=== PATIENT | male | born 1965 | race Caucasian/White ===

== ENCOUNTER → 2018-10-08 13:44 | Outpatient (CLI) | payer OTHER, SELFPAY ==
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
== END ==
PROVIDERS: PCP Nurse Practitioner Family; Visit Provider Nurse Practitioner Family
DX: G89.11 Acute pain due to trauma (principal); M54.6 Pain in thoracic spine; M54.5 Low back pain
CPT/HCPCS: 72072; 72110

== ENCOUNTER 2018-11-06 07:30 | Outpatient (RCR) | payer OTHER, SELFPAY ==
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
== END 2018-12-08 17:23 | disposition home or self-care (01) ==
LOC: PT 07:30
PROVIDERS: Visit Provider Internal Medicine Adolescent Medicine
DX: G89.11 Acute pain due to trauma (principal); M79.10 Myalgia, unspecified site
CPT/HCPCS: 97010; 97014; 97033; 97110; 97140; 97163; G0283

== ENCOUNTER 2020-01-15 19:57 | Inpatient (IN) | payer MEDICARE, SELFPAY ==
[2020-01-15] VITALS (8 sets, daily range): BP systolic 80–106; BP diastolic 47–68; PULSE 78–89; RESP 14–18; TEMP 36.4–36.7; O2SAT 94–96; BMI 25.1
--- NOTE | 2020-01-15 20:05 | ECG_ITS ---
APPROVED REPORT Exam: Resting ECG HR:86 bpm ECG Measurements Heart Rate 86 AXES WY 186 P 67 QRSd 88 QRS 86 QT 376 T 67 QTc 449 <Conclusion> Normal sinus rhythm Normal ECG Electronically signed by : Rodrick Wallace, 01/17/2020 07:10:10
--- NOTE | 2020-01-15 20:23 | HMH.EDAMS ---
ED Disposition Clinical Impression: Acute delirium, NICHELLE (acute kidney injury) Disposition: Admitted as Observation Condition on Discharge: Fair Instructions: DI for Altered Mental Status Referrals: Provider,Referral, [Primary Care Provider] - - Critical Care Critical Care Time: No Attestation: On , the high probability of a clinically significant, sudden or life threatening deterioration of the following system(s) required my full and direct attention, intervention and personal management. The time I documented below is in addition to time spent performing reported procedures but includes the following listed in this critical care notation. Medical Decision Making - Medical Records Medical records reviewed: Yes: I reviewed the patient's medical records. - Abrahan Inquiry Pt receiving controlled substance: No Vital Signs: 01/15/20 20:07 01/15/20 20:12 01/15/20 20:30 Temperature 98.1 F Temperature Source Oral Pulse Rate [Right] 89 88 89 Respiratory Rate 14 18 18 Blood Pressure [Right Arm] 80/60 L 84/47 L 90/52 L Blood Pressure Mean [Right Arm] 66 59 64 Blood Pressure Source [Right Arm] Manual Cuff/ Auscultation Blood Pressure Position [Right Arm] Supine 02 Sat by Pulse Oximetry 95 94 L 96 Oxygen Delivery Method Room Air Room Air Room Air 01/15/20 20:41 01/15/20 20:49 01/15/20 22:37 Temperature 97.6 F Temperature Source Rectal Pulse Rate [Right] 78 84 Respiratory Rate 18 18 Blood Pressure [Right Arm] 82/52 L 87/53 L Blood Pressure Mean [Right Arm] 62 64 Blood Pressure Source [Right Arm] Blood Pressure Position [Right Arm] 02 Sat by Pulse Oximetry 96 96 Oxygen Delivery Method Room Air Room Air 01/15/20 23:28 01/15/20 23:43 Temperature Temperature Source Pulse Rate [Right] 85 89 Respiratory Rate 18 18 Blood Pressure [Right Arm] 94/54 L 106/68 L Blood Pressure Mean [Right Arm] 67 80 Blood Pressure Source [Right Arm] Blood Pressure Position [Right Arm] 02 Sat by Pulse Oximetry 96 96 Oxygen Delivery Method Room Air - Lab Data Lab results reviewed: Yes: I reviewed the patient's lab results. Lab Results 01/15/20 20:00: WBC 10.4, RBC 4.21 L, Hgb 14.4, Hct 45.2, MCV 107.2 H, MCH 34.3 H, MCHC 32.0, RDW 13.8, Plt Count 210, MPV 7.4, Neut % (Auto) 58.1, Lymph % (Auto) 33.7, [place] % (Auto) 4.6, Eos % (Auto) 2.8, Baso % (Auto) 0.8, Neut # (Auto) 6.0, Lymph # (Auto) 3.5, [place] # (Auto) 0.5, Eos # (Auto) 0.3, Baso # (Auto) 0.1, ESR 10 01/15/20 20:00: Sodium 137, Potassium 3.7, Chloride 101, Carbon Dioxide 25, Anion Gap 14.7, BUN 56 H, Creatinine 5.60 H, Estimated Creat Clear 17, Estimated GFR 11 L*, Est GFR ( Amer) 13 L*, Glucose 115 H, Calcium 8.8, Total Bilirubin 0.7, AST 34, ALT 23, Alkaline Phosphatase 76, C-Reactive Protein 6.2 H, Total Protein 7.1, Albumin 4.3, Globulin 2.8, Albumin/Globulin Ratio 1.5 01/15/20 20:00: Lactate 1.0 01/15/20 20:00: Total Creatine Kinase 216 H 01/15/20 20:28: Urine Color Dk yellow, Urine Appearance Sl cloudy, Urine pH 6.0, Ur Specific [place] >= 1.030, Urine Protein 2+, Urine Glucose (UA) Negative, Urine Ketones Trace, Urine Blood Trace-i, Urine Nitrate Negative, Urine Bilirubin Negative, Urine Urobilinogen 1.0, Ur Leukocyte Esterase Negative, Urine WBC 5-10, Ur Squamous Epith Cells 3-5, Amorphous Sediment Trace, Hyaline Casts 3-5, Urine Mucus 1+ 01/15/20 20:40: Urine Opiates Screen Negative, Urine Methadone Screen Negative, Ur Barbituates Screen Negative, Ur Phencyclidine Scrn Negative, Ur Amphetamines Screen Negative, U Benzodiazepines Scrn Negative, Urine Cocaine Screen Negative, U Marijuana (THC) Screen Negative Result diagrams: 01/15/20 20:00 01/15/20 20:00 Orders (Tests/Meds): ED MEDICATIONS Generic Name Dose Route Start Last Admin Trade Name Freq PRN Reason Stop Dose Admin Lactated Ringer's 1,000 mls @ 999 mls/hr 01/15/20 20:30 01/15/20 20:21 Lactated Ringer's 1000 Ml Bag IV 01/15/20 21:30 999 mls/hr .Q1H1M SC
[2020-01-15 20:28] LABS: Basophils # 0.1 K/mm3 (0-0.2); Basophils % 0.8 % (0.1-2.0); Eosinophils # 0.3 K/mm3 (0.0-0.4); Eosinophils % 2.8 % (0.1-12.0); Hematocrit 45.2 % (42.0-52.0); Hemoglobin 14.4 g/dL (14.1-18.0); Lymphocytes # 3.5 K/mm3 (0.7-4.5); Lymphocytes % 33.7 % (10-50); Mean Corpuscular Hemoglobin 34.3 pg (27.0-31.2); Mean Corpuscular Volume 107.2 fl (80-94); Mean Platelet Volume 7.4 fl (7.4-10.4); Monocytes # 0.5 K/mm3 (0.1-1.0); Monocytes % 4.6 % (1.7-9.3); Neutrophils % 58.1 % (37.0-80.0); Platelet Count 210 K/mm3 (142-424); Red Blood Count 4.21 M/mm3 (4.60-6.20); Red Cell Distribution Width 13.8 % (11.5-17.5); White Blood Count 10.4 K/mm3 (4.8-10.8)
[2020-01-15 20:35] LABS: Alanine Aminotransferase 23 U/L (12-78); Albumin Level 4.3 g/dl (3.5-5.0); Albumin/Globulin Ratio 1.5 (1.1-1.8); Alkaline Phosphatase 76 U/L (38-126); Anion Gap 14.7 mEq/L (5-15); Aspartate Amino Transferase 34 U/L (17-59); Bilirubin,Total 0.7 mg/dl (0.2-1.3); Blood Urea Nitrogen 56 mg/dl (9-20); Calcium 8.8 mg/dl (8.4-10.2); Carbon Dioxide 25 mmol/L (22.0-30.0); Chloride 101 mmol/L (98-107); Creatinine Clearance Estimated 17 mL/min (50-200); Estimated Glomerular Filt Rate 11 ml/min (>60); Globulin 2.8 g/dL (1.3-3.2); Glucose 115 mg/dl (74-100); Potassium 3.7 mmoL/L (3.5-5.1); Sodium 137 mmol/L (136-145); Total Protein,Serum 7.1 g/dl (6.3-8.2)
[2020-01-15 20:40] LABS: C-Reactive Protein 6.2 mg/L (0-4)
[2020-01-15 20:43] LABS: GFR (African American) 13 ML/MIN (>60)
[2020-01-15 20:47] LABS: Microscopic, Urine URINE MICROSCOPIC (MICROSCOPIC)
[2020-01-15 20:50] LABS: Appearance,Urine SL CLOUDY (Clear); Blood, Urine TRACE-I (Negative); Color,Urine DK YELLOW (Yellow); Glucose,Urine (UA) Negative (Negative); Ketones,Urine TRACE (Negative); Leukocyte Esterase,Urine Negative (Negative); Nitrate,Urine Negative (Negative); Protein,Urine 2+ (Negative); Specific Gravity, Urine >= 1.030 (1.005-1.030)
--- NOTE | 2020-01-15 20:52 | CT_ITS ---
PROCEDURE: CT HEAD/BRAIN WO CON CLINICAL INDICATION: AMS Altered mental status, altered level of consciousness, confusion, disorientation COMPARISON: No exams were available for comparison TECHNIQUE: Axial images obtained. All CT scans at the facility use one or more dose reduction, viz: automated exposure control, ma/kV adjustment per patient size (including targeted exams where dose is matched to indication, i.e. head), or iterative reconstruction technique. FINDINGS: No midline shift, mass effect, intracranial hemorrhage, hydrocephalus, or extra-axial fluid collection is evident. The calvarium has an unremarkable appearance. No mastoid effusion. There is mild mucosal thickening of the ethmoid sinuses IMPRESSION: No acute intracranial finding Dictated by: Jono Thomas MD 01/16/2020 08:20 Electronically signed by Jono Thomas MD in [place] 01/16/2020 08:21
--- NOTE | 2020-01-15 21:03 | PC.NURSE ---
pt to ct
[2020-01-15 21:08] LABS: Bilirubin,Urine Negative (Negative)
[2020-01-15 21:09] LABS: Erythrocyte Sedimentation Rate 10 mm/hr (0-20)
[2020-01-15 21:11] LABS: Creatine Kinase 216 U/L (55-170)
[2020-01-15 21:15] LABS: Amorphous Sediment,Urine Trace /lpf; Mucus,Urine 1+ /lpf
--- NOTE | 2020-01-15 21:18 | XR_ITS ---
PROCEDURE: XR ANKLE RT MIN 3V CLINICAL INDICATION: fall Posttraumatic pain the COMPARISON: XR ANKLE LT MIN 3V from 01/15/2020 FINDINGS: On the mortise view, there is a subtle oblique lucency at the base of the medial malleolus. This may represent a nondisplaced fracture and follow-up is suggested. Small calcific density is present dorsal to the posterior talar process which could represent an avulsion injury or soft tissue ossification. Ankle mortise appears intact. IMPRESSION: Possible nondisplaced fracture at the base of the medial malleolus. CT may confirm Dictated by: Jono Thomas MD 01/16/2020 06:54 Electronically signed by Jono Thomas MD in [facility] 01/16/2020 06:54
--- NOTE | 2020-01-15 21:18 | XR_ITS ---
PROCEDURE: XR PELVIS 1-2V CLINICAL INDICATION: fall Posttraumatic pain COMPARISON: LS5 LUMBAR SPINE 5 VIEWS from 09/03/2013 CT ABDOMEN PELVIS WO CON from 01/15/2020 TECHNIQUE: XR Pelvis AP View FINDINGS: No acute fracture or dislocation. Hampton catheter is present. There is a defect of the right ilium which may be due to old injury or a postsurgical defect. This had a similar appearance on prior lumbar spine film of 09/03/2013 Suture line is present in the right lower abdominal region No lytic or blastic change. IMPRESSION: No acute findings. Dictated by: Jono Thomas MD 01/16/2020 06:56 Electronically signed by Jono Thomas MD in [facility] 01/16/2020 06:56
--- NOTE | 2020-01-15 21:18 | XR_ITS ---
PROCEDURE: XR ANKLE LT MIN 3V CLINICAL INDICATION: fall Posttraumatic pain COMPARISON: XR ANKLE RT MIN 3V from 01/15/2020 FINDINGS: No fracture, dislocation, lytic change, or blastic change evident. No significant degenerative change IMPRESSION: No acute findings. Dictated by: Jono Thomas MD 01/16/2020 06:55 Electronically signed by Jono Thomas MD in [facility] 01/16/2020 06:55
--- NOTE | 2020-01-15 21:18 | XR_ITS ---
PROCEDURE: XR CHEST PORTABLE CLINICAL HISTORY: fall Posttraumatic pain COMPARISON: [facility] CT CHEST W/ CONTRAST from 05/27/2015 XR CHEST PORTABLE from 09/29/2019 FINDINGS: The cardiomediastinal silhouette and pulmonary vascularity are within normal limits. Calcified granuloma left lower lobe. Lungs are otherwise clear. No acute bony abnormalities. IMPRESSION: No acute findings. Dictated by: Jono Thomas MD 01/16/2020 06:58 Electronically signed by Jono Thomas MD in [facility] 01/16/2020 06:58
[2020-01-15 21:34] LABS: Barbiturates Screen,Urine Negative ng/ml (<200)
[2020-01-15 21:35] LABS: Benzodiazepines Screen,Urine Negative ng/ml (<200)
[2020-01-15 21:36] LABS: Amphetamine/Metha Screen,Urine Negative ng/ml (<1000); Cannabinoid Screen,Urine Negative ng/ml (<50)
[2020-01-15 21:37] LABS: Cocaine Screen,Urine Negative ng/ml (<300); Methadone Screen,Urine Negative ng/ml (<300)
[2020-01-15 21:38] LABS: Opiate Screen,Urine Negative ng/ml (<300)
[2020-01-15 21:39] LABS: Phencyclidine Screen,Urine Negative ng/ml (<25)
--- NOTE | 2020-01-15 22:38 | PC.NURSE ---
v/s delayed due to pt in rad
--- NOTE | 2020-01-15 22:42 | CT_ITS ---
PROCEDURE: CT ABDOMEN PELVIS WO CON CLINICAL INDICATION: fever with confusion Fever, trouble urinating, melena COMPARISON: [facility] CT CHEST W/ CONTRAST from 05/27/2015 TECHNIQUE: Axial images obtained with sagittal and coronal reformats. All CT scans at the facility use one or more dose reduction, viz: automated exposure control, ma/kV adjustment per patient size (including targeted exams where dose is matched to indication, i.e. head), or iterative reconstruction technique. FINDINGS: LOWER THORAX: There are atelectatic changes in the lung bases. Calcification is present in the lingula may be due to a calcified granuloma not significantly changed. ABDOMEN & PELVIS: The liver is unremarkable. Gallbladder is contracted with mildly thickened wall. The spleen, adrenal glands, pancreas have an unremarkable appearance. There is a 6 mm stone in the lower pole of the left kidney. There is a exophytic isodense the along the medial aspect of the left kidney in the mid aspect containing a small calcification. No hydronephrosis. No ureteral calculi. No intestinal obstruction or free air. There appears to been a prior right partial hemicolectomy of the cecum. There is a Hampton catheter present with some gas noted in the urinary bladder which could be iatrogenic. No evidence of appendicitis or diverticulitis. Postsurgical changes are present involving the anterior abdominal wall with a small paraumbilical hernia containing fat. There is deformity of the right ilium and may be due to old trauma or prior surgery. No acute bony findings. IMPRESSION: 1. Left nephrolithiasis. Small exophytic left renal cyst containing a small focus of calcification is well. 2. Bibasilar atelectasis 3. Other nonacute findings as described above. Dictated by: Jono Thomas MD 01/16/2020 07:10 Electronically signed by Jono Thomas MD in [place] 01/16/2020 07:10
[2020-01-16] VITALS (9 sets, daily range): BP systolic 92–150; BP diastolic 52–84; PULSE 73–95; RESP 16–18; TEMP 36.4–36.8; O2SAT 92–97; BMI 23.4; BMI 23.5
[2020-01-16 01:07] LABS: Troponin I < 0.01 ng/ml (0.00-0.034)
--- NOTE | 2020-01-16 01:10 | PC.NURSE ---
patient arrived to floor via wheelchair.
--- NOTE | 2020-01-16 01:40 | PC.NURSE ---
Addendum entered by Wendy Meza RN 01/16/20 03:04: ATTEMPTED TO CONTACT DAUGHTER, UNABLE TO SPEAK WITH HER AT THIS TIME Original Note: PT. DOES NOT KNOW WHAT MEDICINES HE TAKES; AGREES TO HAVE DAUGHTER BRING THEM FROM HOME IN THE AM; WILL PASS ON TO ONCOMING RN.
--- NOTE | 2020-01-16 05:40 | PC.NURSE ---
pt. able to state name, , place and year; has limited comprehension ability; bp have been stable. fc in place draining bright yellow urine. pt. has not c/o n/v/d, dizziness or pain this shift; reports baseline soa with movement.
[2020-01-16 07:11] LABS: Basophils % 0.6 % (0.1-2.0); Eosinophils # 0.2 K/mm3 (0.0-0.4); Eosinophils % 2.2 % (0.1-12.0); Hematocrit 40.9 % (42.0-52.0); Hemoglobin 13.2 g/dL (14.1-18.0); Lymphocytes # 2.9 K/mm3 (0.7-4.5); Lymphocytes % 37.5 % (10-50); Mean Corpuscular HGB Conc 32.4 g/dL (31.8-35.4); Mean Corpuscular Hemoglobin 34.1 pg (27.0-31.2); Mean Corpuscular Volume 105.2 fl (80-94); Mean Platelet Volume 7.4 fl (7.4-10.4); Monocytes # 0.4 K/mm3 (0.1-1.0); Monocytes % 5.2 % (1.7-9.3); Neutrophils # 4.1 K/mm3 (1.8-7.8); Neutrophils % 54.4 % (37.0-80.0); Platelet Count 175 K/mm3 (142-424); Red Blood Count 3.88 M/mm3 (4.60-6.20); Red Cell Distribution Width 13.8 % (11.5-17.5); White Blood Count 7.6 K/mm3 (4.8-10.8)
[2020-01-16 07:18] LABS: Chloride 114 mmol/L (98-107)
[2020-01-16 07:19] LABS: Potassium 4.1 mmoL/L (3.5-5.1); Sodium 140 mmol/L (136-145)
[2020-01-16 07:22] LABS: Anion Gap 8.1 mEq/L (5-15); Blood Urea Nitrogen 34 mg/dl (9-20); Calcium 8.3 mg/dl (8.4-10.2); Carbon Dioxide 22 mmol/L (22.0-30.0); Creatinine Clearance Estimated 42 mL/min (50-200); Estimated Glomerular Filt Rate 33 ml/min (>60); GFR (African American) 40 ML/MIN (>60); Glucose 103 mg/dl (74-100)
--- NOTE | 2020-01-16 08:47 | HMH.PHAVTE ---
[facility] Pharmacy VTE Monitoring - Patient Demographics Admission date: 01/15/20 Report Date: 01/16/20 Time: 08:47 Allergies/Adverse Reactions: Patient Allergies No Known Allergies Allergy (Verified 09/29/19 14:40) Height: 1.8 m Weight: 76.204 kg Patient Problems: Current Active Problems Acute delirium (Acute) NICHELLE (acute kidney injury) (Acute) - VTE Risk Labs: VTE Related Lab Results Hgb 13.2 g/dL (14.1-18.0) L 01/16/20 06:30 Hct 40.9 % (42.0-52.0) L 01/16/20 06:30 Plt Count 175 K/mm3 (142-424) 01/16/20 06:30 BUN 34 mg/dl (9-20) H D 01/16/20 06:30 Creatinine 2.10 mg/dl (0.66-1.25) H D 01/16/20 06:30 Estimated Creat Clear 42 mL/min (50-200) 01/16/20 06:30 VTE Score: 5 VTE Risk Level: Low Risk - Prophylaxis VTE Prophylaxis Ordered?: Yes Types of VTE Prophylaxis: TEDS Knee High Location of Applied Device: Bilateral Lower Extremeties - VTE Diagnosis Confirmed Treatment or plan recommended: Continue Current Treatment
--- NOTE | 2020-01-16 11:30 | HMH.PHAINT ---
MEDICATION RECONCILIATION COMPLETED ON PATIENT USING EXTERNAL FILL HISTORY FROM PHARMACY. -JEFFERSON VILLALOBOS, ZEFERINOD
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
--- NOTE | 2020-01-16 14:58 | PC.NURSE ---
Pt resting in bed today. Hampton discontinued. Adequate urine output noted. Tolerated meals well. Pt continues to be disoriented to time, but oriented otherwise. Pt ambulates to bathroom with assist x1. Continues to c/o ankle pain with lyrica being somewhat effective.
[2020-01-17 04:08] VITALS: BP 153/95; PULSE 71; RESP 16; TEMP 36.7; O2SAT 97
[2020-01-17 04:11] LABS: Basophils # 0.1 K/mm3 (0-0.2); Basophils % 0.8 % (0.1-2.0); Eosinophils # 0.2 K/mm3 (0.0-0.4); Eosinophils % 2.6 % (0.1-12.0); Hematocrit 36.9 % (42.0-52.0); Hemoglobin 12.2 g/dL (14.1-18.0); Lymphocytes # 3.3 K/mm3 (0.7-4.5); Lymphocytes % 43.5 % (10-50); Mean Corpuscular HGB Conc 32.9 g/dL (31.8-35.4); Mean Corpuscular Hemoglobin 34.7 pg (27.0-31.2); Mean Corpuscular Volume 105.4 fl (80-94); Mean Platelet Volume 7.8 fl (7.4-10.4); Monocytes # 0.3 K/mm3 (0.1-1.0); Monocytes % 4.3 % (1.7-9.3); Neutrophils # 3.7 K/mm3 (1.8-7.8); Neutrophils % 48.8 % (37.0-80.0); Platelet Count 158 K/mm3 (142-424); Red Cell Distribution Width 13.8 % (11.5-17.5); White Blood Count 7.5 K/mm3 (4.8-10.8)
[2020-01-17 04:15] LABS: Anion Gap 6.1 mEq/L (5-15); Blood Urea Nitrogen 18 mg/dl (9-20); Calcium 8.5 mg/dl (8.4-10.2); Carbon Dioxide 25 mmol/L (22.0-30.0); Chloride 111 mmol/L (98-107); Creatinine Clearance Estimated 99 mL/min (50-200); Estimated Glomerular Filt Rate 87 ml/min (>60); GFR (African American) 106 ML/MIN (>60); Glucose 100 mg/dl (74-100); Potassium 4.1 mmoL/L (3.5-5.1); Sodium 138 mmol/L (136-145)
[2020-01-17 05:00] VITALS: BMI 23.5
[2020-01-17 07:55] VITALS: PULSE 83; RESP 20; O2SAT 96
[2020-01-17 08:00] VITALS: BP 146/84; PULSE 83; RESP 20; TEMP 36.7; O2SAT 96
[2020-01-17 09:30] LABS: Microscopic, Urine URINE MICROSCOPIC (MICROSCOPIC)
[2020-01-17 09:31] LABS: Appearance,Urine CLEAR (Clear); Bilirubin,Urine Negative (Negative); Blood, Urine 1+ (Negative); Color,Urine YELLOW (Yellow); Glucose,Urine (UA) Negative (Negative); Ketones,Urine Negative (Negative); Leukocyte Esterase,Urine Negative (Negative); Nitrate,Urine Negative (Negative); PH,Urine 6.5 (5.0-8.5); Protein,Urine Negative (Negative); Urobilinogen,Urine 0.2 EU/dl (0.2)
[2020-01-17 09:44] LABS: Squamous Epithelial Cell,Urine Occasional #/hpf (0-5); WBC,Urine Occasional #/hpf (0-3)
--- NOTE | 2020-01-17 13:19 | HMH.ACPN2 ---
Internal Medicine - PN: Subj *Date: 01/17/20 *Time: 13:19 Interval history: He has shown rapid improvement with IV fluids and supportive care. Blood pressure slightly elevated. He takes lisinopril and propranolol as an outpatient. I am reluctant to restart the lisinopril but will initiate metoprolol. He will need to go home with a walking boot. Exam Vital signs and Labs for Last 24 Hours: Temp Pulse Resp BP Pulse Ox 98.1 F 83 20 146/84 H 96 01/17/20 08:00 01/17/20 08:00 01/17/20 08:00 01/17/20 08:00 01/17/20 08:00 Laboratory Results - last 24 hr 01/17/20 03:45: WBC 7.5, RBC 3.50 L, Hgb 12.2 L, Hct 36.9 L, MCV 105.4 H, MCH 34.7 H, MCHC 32.9, RDW 13.8, Plt Count 158, MPV 7.8, Neut % (Auto) 48.8, Lymph % (Auto) 43.5, [place] % (Auto) 4.3, Eos % (Auto) 2.6, Baso % (Auto) 0.8, Neut # (Auto) 3.7, Lymph # (Auto) 3.3, [place] # (Auto) 0.3, Eos # (Auto) 0.2, Baso # (Auto) 0.1 01/17/20 03:45: Sodium 138, Potassium 4.1, Chloride 111 H, Carbon Dioxide 25, Anion Gap 6.1, BUN 18 D, Creatinine 0.90 D, Estimated Creat Clear 99, Estimated GFR 87, Est GFR ( Amer) 106 D, Glucose 100, Calcium 8.5 01/17/20 09:20: Urine Color Yellow, Urine Appearance Clear, Urine pH 6.5, Ur Specific [place] 1.020, Urine Protein Negative, Urine Glucose (UA) Negative, Urine Ketones Negative, Urine Blood 1+, Urine Nitrate Negative, Urine Bilirubin Negative, Urine Urobilinogen 0.2, Ur Leukocyte Esterase Negative, Urine RBC 10-20, Urine WBC Occasional, Ur Squamous Epith Cells Occasional, Urine Bacteria None Laboratory Tests 01/15/20 01/16/20 01/17/20 20:00 06:30 03:45 Sodium 138 Potassium 4.1 Chloride 111 H BUN 56 H 34 H D 18 D Creatinine 5.60 H 2.10 H D 0.90 D I & O for Last 24 hours: Intake & Output 01/15/20 01/16/20 01/17/20 01/18/20 11:59 11:59 11:59 11:59 Intake Total 4759 / 4759 4865 / 4865 480 / 480 Output Total 1550 / 1550 2050 Balance 3209 / 3209 2814 / 2814 480 / 480 Weight 168 lb 0.017 oz 168 lb 0.017 oz - Constitutional no acute distress - *Routine Respiratory Exam Present: CTA bilaterally - *Routine Cardiovascular Exam Present: RRR. Absent: murmur - *Routine Abdominal Exam Present: soft. Absent: tenderness - *Routine Extremities Exam Absent: edema (Right ankle is wrapped.) - Routine Back/Spine/Pelvis Exam Back/Spine: Absent: CVA tenderness (Deep scar of the right flank area.) - *Routine Neurological Exam Present: alert, oriented X3 Assessment and Plan (1) Acute delirium Current visit: Yes Status: Acute Category: Medical Code(s): R41.0 - Disorientation, unspecified (2) NICHELLE (acute kidney injury) Current visit: Yes Status: Acute Category: Medical Code(s): N17.9 - Acute kidney failure, unspecified (3) Seizures Current visit: Yes Status: Acute Category: Medical Code(s): R56.9 - Unspecified convulsions (4) Syncope Current visit: Yes Status: Acute Category: Medical Code(s): R55 - Syncope and collapse (5) Fx medial malleolus-closed Current visit: Yes Status: Acute Category: Medical Code(s): S82.53XA - Displaced fracture of medial malleolus of unspecified tibia, initial encounter for closed fracture (6) Back pain without radiculopathy Current visit: No Status: Acute Category: Medical Code(s): M54.9 - Dorsalgia, unspecified - Assessment and plan all Dx Assessment and Plan for all problems:: Likely discharge tomorrow. We need to obtain walking boot. IV fluids were decreased
[2020-01-17 14:41] LABS: Creatine Kinase 79 U/L (55-170)
--- NOTE | 2020-01-17 15:10 | PC.NURSE ---
Pt has been pleasant and cooperative this shift. A&O X4. Pt is a stand-by assist when ambulating and uses a walker. No complaints of pain or SOA. Lungs CTA. Walking boot in place to RLE. 20 g peripheral IV in place to the RT AC patent and infusing NS @ 75 ML/HR. VSS. Call light within reach. Will continue to monitor.
[2020-01-17 15:34] VITALS: BP 147/85; PULSE 74; RESP 18; TEMP 36.8; O2SAT 96
[2020-01-17 20:00] VITALS: BP 156/89; PULSE 64; RESP 16; TEMP 37.1; O2SAT 96
[2020-01-18 04:00] VITALS: BP 148/84; PULSE 62; RESP 16; TEMP 37; O2SAT 98
[2020-01-18 05:00] VITALS: BMI 24.7
--- NOTE | 2020-01-18 05:17 | PC.NURSE ---
shift summary, pt rested well throughout shift, voided without difficulty, ambulates to bathroom via walker, walking boot to RLE
[2020-01-18 06:23] LABS: Chloride 109 mmol/L (98-107); Sodium 137 mmol/L (136-145)
[2020-01-18 06:24] LABS: Potassium 4.1 mmoL/L (3.5-5.1)
[2020-01-18 06:26] LABS: Basophils % 0.4 % (0.1-2.0); Blood Urea Nitrogen 12 mg/dl (9-20); Creatinine Clearance Estimated 117 mL/min (50-200); Eosinophils # 0.2 K/mm3 (0.0-0.4); Eosinophils % 2.9 % (0.1-12.0); Estimated Glomerular Filt Rate 100 ml/min (>60); GFR (African American) 121 ML/MIN (>60); Hematocrit 34.7 % (42.0-52.0); Hemoglobin 11.5 g/dL (14.1-18.0); Lymphocytes # 3.2 K/mm3 (0.7-4.5); Lymphocytes % 44.5 % (10-50); Mean Corpuscular HGB Conc 33.1 g/dL (31.8-35.4); Mean Corpuscular Hemoglobin 34.5 pg (27.0-31.2); Mean Corpuscular Volume 104.2 fl (80-94); Mean Platelet Volume 7.9 fl (7.4-10.4); Monocytes # 0.3 K/mm3 (0.1-1.0); Neutrophils # 3.5 K/mm3 (1.8-7.8); Neutrophils % 48.2 % (37.0-80.0); Platelet Count 147 K/mm3 (142-424); Red Blood Count 3.33 M/mm3 (4.60-6.20); Red Cell Distribution Width 13.6 % (11.5-17.5); White Blood Count 7.2 K/mm3 (4.8-10.8)
[2020-01-18 06:27] LABS: Anion Gap 3.1 mEq/L (5-15); Carbon Dioxide 29 mmol/L (22.0-30.0); Glucose 87 mg/dl (74-100)
[2020-01-18 07:59] VITALS: BP 144/99; PULSE 72; RESP 20; TEMP 36.6; O2SAT 94
--- NOTE | 2020-01-18 08:13 | HMH.ACPN2 ---
Internal Medicine - PN: Subj *Date: 01/18/20 *Time: 08:13 Interval history: Patient states that he feels well and is ready to go home. He states he slept very little last night. He is eating without difficulty. Bowels are moving and he voids QS. He ambulates in the room without problems. Blood chemistries show a much improved renal function which is now normal. CBC reveals a hemoglobin of 11.5 hematocrit of 34.7 and white blood cell count of 7200. Blood cultures are negative up at 48 hours Exam Vital signs and Labs for Last 24 Hours: Temp Pulse Resp BP Pulse Ox 97.9 F 72 20 144/99 H 94 L 01/18/20 07:59 01/18/20 07:59 01/18/20 07:59 01/18/20 07:59 01/18/20 07:59 Laboratory Results - last 24 hr 01/17/20 03:45: Total Creatine Kinase 79 01/17/20 09:20: Urine Color Yellow, Urine Appearance Clear, Urine pH 6.5, Ur Specific Lindsay 1.020, Urine Protein Negative, Urine Glucose (UA) Negative, Urine Ketones Negative, Urine Blood 1+, Urine Nitrate Negative, Urine Bilirubin Negative, Urine Urobilinogen 0.2, Ur Leukocyte Esterase Negative, Urine RBC 10-20, Urine WBC Occasional, Ur Squamous Epith Cells Occasional, Urine Bacteria None 01/18/20 05:52: WBC 7.2, RBC 3.33 L, Hgb 11.5 L, Hct 34.7 L, MCV 104.2 H, MCH 34.5 H, MCHC 33.1, RDW 13.6, Plt Count 147, MPV 7.9, Neut % (Auto) 48.2, Lymph % (Auto) 44.5, [place] % (Auto) 4.0, Eos % (Auto) 2.9, Baso % (Auto) 0.4, Neut # (Auto) 3.5, Lymph # (Auto) 3.2, [place] # (Auto) 0.3, Eos # (Auto) 0.2, Baso # (Auto) 0.0 01/18/20 05:52: Sodium 137, Potassium 4.1, Chloride 109 H, Carbon Dioxide 29, Anion Gap 3.1 L, BUN 12 D, Creatinine 0.80, Estimated Creat Clear 117, Estimated GFR 100, Est GFR ( Amer) 121, Glucose 87, Calcium 8.0 L I & O for Last 24 hours: Intake & Output 01/15/20 01/16/20 01/17/20 01/18/20 11:59 11:59 11:59 11:59 Intake Total 4759 / 4759 4865 / 4865 3791 / 3791 Output Total 1550 / 1550 205 / 205 900 / 900 Balance 3209 / 3209 2814 / 2814 2891 / 2891 Weight 168 lb 0.017 oz 168 lb 0.017 oz 176 lb 6 oz Microbiology Reports for the Last 24 Hours: Microbiology 01/15/20 20:00 Blood Blood Culture - Preliminary NO GROWTH AFTER 48 HOURS 01/15/20 20:00 Blood Blood Culture - Preliminary NO GROWTH AFTER 48 HOURS - Constitutional no acute distress - *Routine Respiratory Exam Present: CTA bilaterally (Anteriorly and posteriorly) - *Routine Cardiovascular Exam Present: RRR - *Routine Abdominal Exam Present: soft, normoactive bowel sounds. Absent: tenderness - *Routine Extremities Exam Comments: Right lower leg is in a boot. No edema of the left leg and no calf tenderness. - *Routine Neurological Exam Present: alert, oriented X3 Assessment and Plan (1) Acute delirium Current visit: Yes Status: Acute Category: Medical Code(s): R41.0 - Disorientation, unspecified (2) NICHELLE (acute kidney injury) Current visit: Yes Status: Acute Category: Medical Code(s): N17.9 - Acute kidney failure, unspecified (3) Seizures Current visit: Yes Status: Acute Category: Medical Code(s): R56.9 - Unspecified convulsions (4) Syncope Current visit: Yes Status: Acute Category: Medical Code(s): R55 - Syncope and collapse (5) Fx medial malleolus-closed Current visit: Yes Status: Acute Category: Medical Code(s): S82.53XA - Displaced fracture of medial malleolus of unspecified tibia, initial encounter for closed fracture (6) Back pain without radiculopathy Current visit: No Status: Acute Category: Medical Code(s): M54.9 - Dorsalgia, unspecified - Assessment and plan all Dx Assessment and Plan for all problems:: Patient is ready for discharge.
--- NOTE | 2020-01-18 10:15 | HMH.PHAINT ---
DISCHARGE COUNSELING COMPLETED.
--- NOTE | 2020-01-18 10:20 | PC.NURSE ---
Discharge education provided to pt, questions encouraged and answered. Discharge paperwork signed. Pt reports that his ride is on the way, denies any needs.
--- NOTE | 2020-01-18 16:38 | HMH.DCSUM ---
General - General Admission date:: 01/16/20 Discharge date: 01/18/20 HPI HPI: This 54-year-old white male was brought to the emergency room from [facility] ([facility] It was reported by EMS that the patient had not had any urine output for 2 days and was confused and blood pressure was low. It was difficult to get a history from the patient in the emergency room. He was more lucid the following day at which time he reported that he was having seizures over the past 2 days. This started on night. He stated that he had about 5 seizures on Saturday. His roommate reported that he jerks when he goes out. He falls. He fell and hurt his right ankle and still complains about right ankle pain. He stated that for the past 6 days he has been eating wild lettuce but was unable to explain exactly what this wild lettuce was. He obtained it from the out of doors. In the emergency room his renal functions were elevated. These did improve some overnight with IV fluids. He worried about the possibility of seizures if he stands up again. Obviously he could have just been passing out from low blood pressures. Hospital Course Hospital Course: Patient was given fluid boluses in the emergency room. With imaging he was found to have a right nondisplaced ankle fracture. On admission BUN was 56 and creatinine was 5.6 with an estimated GFR of 11. Lactic was normal; total CPK was 216 and troponin I was normal. After fluid boluses he was started on IV fluids at 75 an hour. The following day BUN had decreased to 34 with a creatinine of 2.1 and continued to decrease and normalized at discharge with a BUN of 12 and creatinine of 0.8. He was started back on some of his regular home meds. He had a walking boot placed for the right ankle fracture. The following day he revealed rapid improvement with the IV fluids and supportive care. Blood pressure was slightly elevated. Metoprolol was initiated. On 01/18/2020 patient felt well and was ready to go home. He was eating without problems. Bowels were moving and he was voiding QS. He ambulated in the room with a walking boot on without problems. Blood cultures were all negative at 48 hours. He was stable to be discharged home. Disposition: patient was discharged home in stable and satisfactory condition. He was to continue with meds as per medication sheet. He was to follow-up with his provider in 1 week. He was to continue with his current diet. Objective Vital signs: Temp Pulse Resp BP Pulse Ox 97.9 F 72 20 144/99 H 94 L 01/18/20 07:59 01/18/20 07:59 01/18/20 07:59 01/18/20 07:59 01/18/20 07:59 Narrative: Exam Vital signs and Labs for Last 24 Hours: Temp Pulse Resp BP Pulse Ox 97.9 F 72 20 144/99 H 94 L 01/18/20 07:59 01/18/20 07:59 01/18/20 07:59 01/18/20 07:59 01/18/20 07:59 Laboratory Results - last 24 hr 01/17/20 03:45: Total Creatine Kinase 79 01/17/20 09:20: Urine Color Yellow, Urine Appearance Clear, Urine pH 6.5, Ur Specific [place] 1.020, Urine Protein Negative, Urine Glucose (UA) Negative, Urine Ketones Negative, Urine Blood 1+, Urine Nitrate Negative, Urine Bilirubin Negative, Urine Urobilinogen 0.2, Ur Leukocyte Esterase Negative, Urine RBC 10-20, Urine WBC Occasional, Ur Squamous Epith Cells Occasional, Urine Bacteria None 01/18/20 05:52: WBC 7.2, RBC 3.33 L, Hgb 11.5 L, Hct 34.7 L, MCV 104.2 H, MCH 34.5 H, MCHC 33.1, RDW 13.6, Plt Count 147, MPV 7.9, Neut % (Auto) 48.2, Lymph % (Auto) 44.5, [place] % (Auto) 4.0, Eos % (Auto) 2.9, Baso % (Auto) 0.4, Neut # (Auto) 3.5, Lymph # (Auto) 3.2, [place] # (Auto) 0.3, Eos # (Auto) 0.2, Baso # (Auto) 0.0 01/18/20 05:52: Sodium 137, Potassium 4.1, Chloride 109 H, Carbon Dioxide 29, Anion Gap 3.1 L, BUN 12 D, Creatinine 0.80, Estimated Creat Clear 117, Estimated GFR 100, Est GFR ( Amer) 121, Glucose 87, Calcium 8.0 L I & O for Last 24 hours: Intake & Output 01/15/20 01/16/20 01/17/20 06/0
[2020-01-19 02:32] LABS: Folate 7.8 ng/mL (>3.0); Vitamin B12 307 pg/mL (232-1245)
== END 2020-01-18 10:35 | disposition home or self-care (01) | DRG 101 ==
LOC: ER 01-16 00:24 → 2ND 01-16 00:29
PROVIDERS: Admitting Provider Family Medicine; Emergency Provider Emergency Medicine; Visit Provider Family Medicine
DX: R56.9 Unspecified convulsions (principal); N17.9 Acute kidney failure, unspecified; S82.54XA Nondisplaced fracture of medial malleolus of right tibia, initial encounter for closed fracture; W01.0XXA Fall on same level from slipping, tripping and stumbling without subsequent striking against object, initial encounter; Z91.81 History of falling; Y92.019 Unspecified place in single-family (private) house as the place of occurrence of the external cause; I10 Essential (primary) hypertension; R41.0 Disorientation, unspecified; J44.9 Chronic obstructive pulmonary disease, unspecified; M54.5 Low back pain; Z79.899 Other long term (current) drug therapy
CPT/HCPCS: 36415; 70450; 71045; 72170; 73610; 74176; 80048; 80053; 80305; 81001; 82550; 82607; 82746; 83605; 83735; 84484; 85025; 85651; 86140; 87040; 93005; 96365; 96366; 99285

== ENCOUNTER 2022-03-14 16:47 | Emergency (ER) | payer MEDICARE, SELFPAY ==
--- NOTE | 2022-03-14 16:50 | PC.NURSE ---
prior to patient arrival, pt's daughter called ed and spoke with this nurse. daughter states pt has taken himself off his psych medications, has had some falls in the past couple weeks, has been talking out of his head all day, and has trashed his house today d/t thinking his house was hacked. daughter states she was under the suspicion of drug use. daughter reported pt's sister was going to accompany him to the ed. on arrival to ed, this nurse went to the lobby to bring pt back to room. pt was refusing to come back to the ed, pacing around the lobby and wouldn't answer questions. pt kept pacing, pointing at things and shaking his head no. this nurse, along with javier gipson spoke with family in the lobby. data warehouse developer was contacted to be made aware of the situation.
--- NOTE | 2022-03-14 17:20 | PC.NURSE ---
contacted house nurse, notified her that pt is refusing to come back to ER room. Pt was registered per his family upon arrival. Pt will not respond verbally when you speak to him. He is in the refreshment area of the lobby, staring at pop machines, jay jay and coffee machine. Pt family reports pt thinks the machine are hacked and talking to him . Pt daughter and sister present with pt. supervisor stone aware of situation, states can not force pt to be seen.
--- NOTE | 2022-03-14 17:40 | PC.NURSE ---
called housekeeping supervisor hotel to come to the ed lobby. housekeeping supervisor hotel present in the lobby with patient and daughter.
--- NOTE | 2022-03-14 18:22 | PC.NURSE ---
pt has never made it back to ED room 5 that we had assigned him when Evelina called back from registration after registering patient. Pt is still in waiting area at this time with family.
--- NOTE | 2022-03-14 19:51 | PC.NURSE ---
Late Entry: 17:30 - As acting smokehouse operator, this RN was called to the lobby to assess and assist the situation with a patient refusing to be seen and pacing the refreshment area of the lobby. Pt is visibly pacing between the RHEA and vending machines. He does not answer to his name being called, and only responds with no . Pt daughter present, attempting to get him into to the wheelchair to be seen in ED. Brief hx of situation and reason for coming to the hospital obtained from pts daughter. Pt appears thin, and appears to have some altered mental status. This RN asked the pt if he was hurt, or needed to be seen for any reason. He responded no . Pt daughter requesting he be evaluated by the MD. Explained to pt daughter that staff could not force patient to be seen. Pt able to tell me his name, and where he is. Continues to refuse treatment or to be seen by MD. Pt daughter requesting help, stating I cannot take him back home like this, he will hurt himself. At this time, pt does not seem harmful to himself or others. He continues to pace in the vending area. 18:00 - Contacted [facility] to inform of situation, advised that pt could not be forced to be seen, and that compliance/risk would need to be contacted. Informed CNO that patients daughter is refusing to leave without something being done for patient. Advised to ask the patient again if he wanted to be evaluated in the ED. 18:15 - Spoke with credit or loans officer regarding situation. Advised to contact local law enforcement if patient became aggressive or disruptive with staff/other patients or at risk to harm himself. 18:40 - pt has increasingly gotten more anxious, continues to pace in the vending area, states he won't leave. Daughter requested PD be contacted. 18:45 - [employer] contacted at this time, states an officer will be en route. 18:55 - [employer] officer present. Pt starting to become increasingly aggressive towards daughter and staff. Pt now pacing in the lobby. 19:10 - pt now being disruptive to other patients in the lobby. Pt yelling at staff about the door to the ED lobby not closing. Pt yelling at [employer] and daughter. Pt also telling other patients in the lobby to not look at him. [employer] on phone with compliance attorney at this time in reference to a citation for a psych hold and transport to [facility]. Daughter agreeable with this. 19:30 - Pt continuing to get more agitated and disruptive. Pt daughter crying asking him to stop. [employer] to get citation paperwork in motion. 19:56 - Pt escorted from ER lobby with [employer] and citation to be transported to [facility]. CNO and credit or loans officer notified of updates to situation.
[2022-03-14 20:17] VITALS: BP 00/00; PULSE 0; RESP 0; TEMP -17.7; TEMP 0; O2SAT 0
== END 2022-03-14 20:19 | disposition left against medical advice (07) ==
PROVIDERS: Emergency Provider Emergency Medicine; PCP Family Medicine
DX: Z53.21 Procedure and treatment not carried out due to patient leaving prior to being seen by health care provider (principal)

== ENCOUNTER 2022-05-12 11:58 | Emergency (ER) | payer MEDICARE, SELFPAY ==
[2022-05-12] VITALS (8 sets, daily range): BP systolic 69–88; BP diastolic 46–59; PULSE 75–93; RESP 8–16; TEMP 36.9; O2SAT 97–100; BMI 19.8
--- NOTE | 2022-05-12 12:01 | CT_ITS ---
PROCEDURE INFORMATION: Exam: CT Head Without Contrast Exam date and time: 05/12/2022 12:31 PM Age: 56 years old Clinical indication: Injury or trauma; Other: Unknown injury; Additional info: Head injury TECHNIQUE: Imaging protocol: Computed tomography of the head without contrast. Radiation optimization: All CT scans at this facility use at least one of these dose optimization techniques: automated exposure control; mA and/or kV adjustment per patient size (includes targeted exams where dose is matched to clinical indication); or iterative reconstruction. COMPARISON: CT HEAD/BRAIN WO CON 01/15/2020 9:06 PM FINDINGS: Brain: No hemorrhage, mass effect or midline shift. Cerebral ventricles: No ventriculomegaly. Paranasal sinuses: Visualized sinuses are unremarkable. No fluid levels. Mastoid air cells: Visualized mastoid air cells are well aerated. Nasal cavity: Lflw-by-szcna nasal septal deviation. Bones/joints: No acute fracture. Soft tissues: No acute changes IMPRESSION: No hemorrhage, mass effect or midline shift.
--- NOTE | 2022-05-12 12:01 | HMH.EDGENADL ---
Discharge Plan Disposition Patient Disposition: Xfer Other Condition: Serious Prescriptions Prescriptions: No Action peg 3350-electrolytes [Golytely] 236-22.74-6.74 -5.86 gram recon soln 240 ml PO Q10M Qty: 4000 0RF Rx Instructions: until fecal effluent is clear atorvastatin 20 MG tablet 20 mg PO HS trazodone 150 MG tablet 150 mg PO HS lisinopril 10 MG tablet 10 mg PO DAILY pregabalin 100 MG capsule 100 mg PO TID metoprolol succinate 25 MG tablet extended release 24 hr 25 mg PO DAILY Qty: 30 1RF Clinical Impressions Clinical Impression: Acute cerebrovascular accident (CVA) Discharge ED Provider: Meir Walton General Adult HPI General Chief complaint: Neuro Symptoms/Deficit Stated complaint: WEAKNESS Time Seen by Provider: 05/12/22 12:01 Mode of Arrival: EMS History of Present Illness HPI narrative: 56-year-old male, history of NICHELLE, hypertension, hyperlipidemia, presents as a stroke alert via EMS. He states he awoke at 4 AM with total left-sided weakness. His daughter called EMS within the last hour and prompted the visit here. He states his last definite known normal was about 10:00 last night whenever he went to bed. He denies any headache, blurry or double vision, nausea or vomiting. Denies any prior history of stroke or intracranial hemorrhage. He is not on anticoagulant. Related Data Home Medications Medication Instructions Recorded Confirmed atorvastatin 20 mg tablet 20 mg PO HS Cholesterol 01/15/20 01/15/20 lisinopril 10 mg tablet 10 mg PO DAILY Hypertension 01/15/20 01/15/20 pregabalin 100 mg capsule 100 mg PO TID Pain 01/15/20 01/16/20 trazodone 150 mg tablet 150 mg PO HS SLEEP 01/15/20 01/16/20 Previous Rx's Medication Instructions Recorded metoprolol succinate 25 mg 25 mg PO DAILY ##30 01/18/20 tablet,extended release 24 hr peg 3350-electrolytes 236 240 ml PO Q10M #4,000 mL 01/22/22 gram-22.74 gram-6.74 gram-5.86 gram solution (Golytely) Allergies Allergy/AdvReac Type Severity Reaction Status Date / Time No Known Allergies Allergy Verified 09/29/19 14:40 PFSH PFSH Social History Smoking Status: Current every day smoker tobacco type: cigarettes packs per day: 1 alcohol intake: current current occupational status: disabled Travel in the last 8 weeks: None household members: none caffeine: Yes ROS Obtained: Yes Systems reviewed as appropriate & no additional complaints except as documented Constitutional Constitutional: Reports system reviewed and no additional complaints, except as documented, Denies headache(s) and Reports weakness Eyes Eyes: Reports system reviewed and no additional complaints, except as documented and Denies loss of vision ENT Ears, Nose, Mouth, and Throat: Reports system reviewed and no additional complaints, except as documented and Denies headache(s) Cardiovascular Cardiovascular: Reports system reviewed and no additional complaints, except as documented Respiratory Respiratory: Reports system reviewed and no additional complaints, except as documented Gastrointestinal Gastrointestingal: Reports system reviewed and no additional complaints, except as documented Genitourinary Male Genitourinary: Reports system reviewed and no additional complaints, except as documented Musculoskeletal Musculoskeletal: Reports system reviewed and no additional complaints, except as documented Integumentary/Breasts Skin/Breast: Reports system reviewed and no additional complaints, except as documented Neurologic Neurologic: Reports as per HPI, Denies abnormal speech, Denies confusion, Reports focal weakness, Denies headache(s), Denies loss of vision, Reports sensory deficit and Reports weakness Endocrine Endocrine: Reports system reviewed and no additional complaints, except as documented Hematologic/Lymphatic Henatologic/Lymphatic: Reports system reviewed and no
--- NOTE | 2022-05-12 12:02 | PC.NURSE ---
Radiology called; need head CT stroke protocol. Radiology said they were on their way
[2022-05-12 12:08] LABS: POC Glucose,Bedside 77 (70-110)
--- NOTE | 2022-05-12 12:33 | PC.NURSE ---
Kelvin montes taking pt to CT
--- NOTE | 2022-05-12 12:43 | HMH.ITSTN ---
originally ordered as a stroke protocol -- however blood pressure was low and was unable to get a line. Also discovered that patient had symptoms for more than 10 hours so it was then changed to a normal head CT
--- NOTE | 2022-05-12 12:43 | PC.NURSE ---
Pt back from rad
--- NOTE | 2022-05-12 13:19 | PC.NURSE ---
called [facility] for stroke team
--- NOTE | 2022-05-12 13:22 | PC.NURSE ---
[facility] speaking to DINO VALENTIN @ this time
--- NOTE | 2022-05-12 13:31 | PC.NURSE ---
Requested for Rad to powers[employer]are images to [employer] and to print a disc.
--- NOTE | 2022-05-12 13:32 | PC.NURSE ---
Pt accepted to [facility] by Dr Vincent.
[2022-05-12 13:33] LABS: Chloride 102 mmol/L (98-107)
[2022-05-12 13:34] LABS: Basophils # 0.1 K/mm3 (0-0.2); Eosinophils # 0.1 K/mm3 (0.0-0.4); Eosinophils % 0.8 % (0.1-12.0); Hematocrit 41.3 % (42.0-52.0); Hemoglobin 13.5 g/dL (14.1-18.0); Lymphocytes # 2.1 K/mm3 (0.7-4.5); Lymphocytes % 23.6 % (10-50); Mean Corpuscular HGB Conc 32.6 g/dL (31.8-35.4); Mean Corpuscular Hemoglobin 33.3 pg (27.0-31.2); Mean Corpuscular Volume 102.1 fl (80-94); Mean Platelet Volume 7.6 fl (7.4-10.4); Monocytes # 0.5 K/mm3 (0.1-1.0); Monocytes % 5.1 % (1.7-9.3); Neutrophils # 6.2 K/mm3 (1.8-7.8); Neutrophils % 69.5 % (37.0-80.0); Platelet Count 277 K/mm3 (142-424); Potassium 4.6 mmoL/L (3.5-5.1); Red Blood Count 4.05 M/mm3 (4.60-6.20); Red Cell Distribution Width 14.8 % (11.5-17.5); Sodium 135 mmol/L (136-145); White Blood Count 8.9 K/mm3 (4.8-10.8)
[2022-05-12 13:36] LABS: Alanine Aminotransferase 16 U/L (12-78); Alkaline Phosphatase 77 U/L (38-126); Anion Gap 16.6 mEq/L (5-15); Aspartate Amino Transferase 24 U/L (17-59); Bilirubin,Total 0.9 mg/dl (0.2-1.3); Blood Urea Nitrogen 38 mg/dl (9-20); Carbon Dioxide 21 mmol/L (22.0-30.0); Creatinine Clearance Estimated 39 mL/min (50-200); Estimated Glomerular Filt Rate 37 ml/min (>60); GFR (African American) 44 ML/MIN (>60)
[2022-05-12 13:37] LABS: Albumin Level 3.7 g/dl (3.5-5.0); Albumin/Globulin Ratio 1.4 (1.1-1.8); Calcium 8.6 mg/dl (8.4-10.2); Globulin 2.6 g/dL (1.3-3.2); Glucose 82 mg/dl (74-100); Total Protein,Serum 6.3 g/dl (6.3-8.2)
[2022-05-12 13:39] LABS: INR 0.98 (0.9-1.1); Prothrombin Time 10.6 seconds (10.1-12.5)
[2022-05-12 13:42] LABS: Coronavirus 19, PCR Not Detected (NotDetected); Influenza A, PCR Not Detected (NotDetected); Influenza B, PCR Not Detected (NotDetected)
[2022-05-12 13:50] LABS: Troponin I < 0.01 ng/ml (0.00-0.034)
--- NOTE | 2022-05-12 14:23 | PC.NURSE ---
Called Shauna in ER and gave report.
--- NOTE | 2022-05-12 14:44 | PC.NURSE ---
pt left for TRANSFER TO [facility] ED @ this time
== END 2022-05-12 14:45 | disposition other institution (70) ==
PROVIDERS: Emergency Provider Emergency Medicine; PCP Family Medicine
DX: R53.1 Weakness (principal); I10 Essential (primary) hypertension; N17.9 Acute kidney failure, unspecified; E78.5 Hyperlipidemia, unspecified; F17.210 Nicotine dependence, cigarettes, uncomplicated; Z20.822 Contact with and (suspected) exposure to COVID-19; Z79.899 Other long term (current) drug therapy
CPT/HCPCS: 70450; 80053; 82962; 84484; 85025; 85610; 99285; C9803; U0003; U0005

== ENCOUNTER → 2023-05-07 14:30 | Outpatient (CLI) | payer MEDICARE, SELFPAY ==
[2023-05-07 17:02] LABS: Basophils % 0.4 % (0.1-2.0); Eosinophils # 0.2 K/mm3 (0.0-0.4); Eosinophils % 2.6 % (0.1-12.0); Hematocrit 44.2 % (42.0-52.0); Lymphocytes # 3.2 K/mm3 (0.7-4.5); Mean Corpuscular HGB Conc 31.7 g/dL (31.8-35.4); Mean Corpuscular Hemoglobin 31.2 pg (27.0-31.2); Mean Corpuscular Volume 98.5 fl (80-94); Mean Platelet Volume 8.6 fl (7.4-10.4); Monocytes # 0.5 K/mm3 (0.1-1.0); Monocytes % 5.3 % (1.7-9.3); Neutrophils # 4.5 K/mm3 (1.8-7.8); Neutrophils % 53.7 % (37.0-80.0); Platelet Count 329 K/mm3 (142-424); Red Blood Count 4.48 M/mm3 (4.60-6.20); Red Cell Distribution Width 13.8 % (11.5-17.5); White Blood Count 8.4 K/mm3 (4.8-10.8)
[2023-05-07 17:07] LABS: Alanine Aminotransferase 28 U/L (12-78); Albumin Level 4.3 g/dl (3.5-5.0); Albumin/Globulin Ratio 1.4 (1.1-1.8); Alkaline Phosphatase 90 U/L (38-126); Anion Gap 16.2 mEq/L (5-15); Aspartate Amino Transferase 35 U/L (17-59); Bilirubin,Total 0.5 mg/dl (0.2-1.3); Blood Urea Nitrogen 12 mg/dl (9-20); Calcium 9.3 mg/dl (8.4-10.2); Carbon Dioxide 26 mmol/L (22.0-30.0); Chloride 102 mmol/L (98-107); Estimated Glomerular Filt Rate 99 ml/min (>60); GFR (African American) 120 ML/MIN (>60); Globulin 3.1 g/dL (1.3-3.2); Glucose 145 mg/dl (74-100); Potassium 4.2 mmoL/L (3.5-5.1); Sodium 140 mmol/L (136-145); Total Protein,Serum 7.4 g/dl (6.3-8.2)
[2023-05-07 17:17] LABS: Benzodiazepines Screen,Urine Positive ng/ml (<200)
[2023-05-07 17:18] LABS: Amphetamine/Metha Screen,Urine Negative ng/ml (<1000); Barbiturates Screen,Urine Negative ng/ml (<200)
[2023-05-07 17:19] LABS: Methadone Screen,Urine Negative ng/ml (<300)
[2023-05-07 17:20] LABS: Cannabinoid Screen,Urine Negative ng/ml (<50); Cocaine Screen,Urine Negative ng/ml (<300)
[2023-05-07 17:22] LABS: Opiate Screen,Urine Positive ng/ml (<300); Phencyclidine Screen,Urine Negative ng/ml (<25)
[2023-05-07 17:24] LABS: Microalbumin < 6.000 mg/L (0-16.7)
[2023-05-07 17:53] LABS: Creatinine,Urine Random 24 mg/dL (Not Estab.)
[2023-05-08 10:17] LABS: Hemoglobin A1C 5.6 % (4.0-6.0)
== END ==
PROVIDERS: Visit Provider Family Medicine
DX: R73.9 Hyperglycemia, unspecified (principal)
CPT/HCPCS: 80053; 80305; 82043; 82570; 83036; 85025